=== PATIENT | male | born 1940 | race Caucasian/White ===

== ENCOUNTER 2016-10-06 12:04 | Emergency (ER) | payer MEDICARE, BC ==
[~2016-10-06 12:04] MED LIST: ACTOS PO; ALLOPURINOL300 MG PO; ASPIRIN E.C. 8181 MG PO; ASTELIN137 MCG/Ac NS; ATORVASTATIN CA20 MG PO; AVANDIA8 MG PO; CYCLOBENZAPRINE10 MG PO; FAMOTIDINE20 MG PO; FLEXERIL5 MG PO; FUROSEMIDE20 MG PO; GLUCOPHAGE1000 MG PO; LASIX40 MG PO; LEVOTHYROXIN0.075 M1 PO; LISINOPRIL20 MG PO; LOW DOSE ASPIRI81 MG PO; NEXIUM PO; NITROQUICK0.4 MG SL; ONDANSETRON HYDR4 M1 PO; ULTRAM50 MG PO; VYTORIN 10 MG-41 TAB PO; ZESTRIL5 M1 PO; ZYLOPRIM 300MG300 MG PO
[2016-10-06] MEDS ORDERED: ZOFRAN ODT8 M1 PO (13:52)
== END 2016-10-06 14:01 | disposition home or self-care (01) ==
LOC: ED 12:04
DX: R42 Dizziness and giddiness (principal); R11.0 Nausea; Z85.89 Personal history of malignant neoplasm of other organs and systems; I25.10 Atherosclerotic heart disease of native coronary artery without angina pectoris; I11.9 Hypertensive heart disease without heart failure; E11.9 Type 2 diabetes mellitus without complications; Z79.82 Long term (current) use of aspirin

== ENCOUNTER → 2017-06-24 | Outpatient (CLI) | payer MEDICARE, BC ==
[2016-10-06 14:00] VITALS: BP 157/75
[~2017-06-24] MED LIST changes: +ZOFRAN ODT8 M1 PO
[2017-06-24 11:04] LABS: ALBUMIN 3.8 g/dL (3.5-5.0); BUN/CREATININE RATIO 16.5 (6.0-26.0); CALCIUM 9.7 mg/dL (8.4-10.2); POTASSIUM 3.9 mmol/L (3.6-5.0); TOTAL BILIRUBIN 0.9 mg/dL (0.2-1.3); TOTAL PROTEIN 7.1 g/dL (6.3-8.2)
[2017-06-24 11:10] LABS: EOS # 0.1 (0.04-0.40); EOS % 1.9 % (0.0-4.0); HEMATOCRIT 41.6 % (42.0-52.0); HEMOGLOBIN 13.8 g/dL (13.5-18.0); LYMPH# 1.5 (1.50-4.00); MEAN CELL VOLUME 93 fl (78-100); MEAN CORPUSCULAR HEMOGLOBIN 31 pg (27-31); MEAN CORPUSCULAR HGB CONC 33 g/dL (33-37); MEAN PLATELET VOLUME 9.4 fl (7.4-10.4); MONO # 0.5 (0.20-0.80); NEU # 5.2 (1.40-6.50); PLATELET COUNT 254 K/mm3 (130-400); RED BLOOD COUNT 4.48 M/mm3 (4.20-5.60); RED CELL DISTRIBUTION WIDTH 13.3 % (11.5-14.5); WHITE BLOOD COUNT 7.4 K/mm3 (4.8-10.8)
== END ==
LOC: LAB 10:16
PROVIDERS: Physician Assistant Medical
DX: R10.31 Right lower quadrant pain (principal)

== ENCOUNTER → 2017-07-06 | Outpatient (CLI) | payer MEDICARE, BC ==
[2016-10-06 14:00] VITALS: BP 157/75
== END ==
LOC: RAD 11:40
DX: R10.31 Right lower quadrant pain (principal); K57.30 Diverticulosis of large intestine without perforation or abscess without bleeding; Z90.79 Acquired absence of other genital organ(s)

== ENCOUNTER 2018-03-25 12:01 | Emergency (ER) | payer MEDICARE, BC ==
[~2018-03-25] VITALS: Ht 177.8 cm; Wt 149.5 kg
[2018-03-25] MEDS ORDERED: JANUVIA 100MG100 MG (12:07)
[2018-03-25] MEDS ORDERED: NEURONTIN300 MG/CAP (12:07)
[2018-03-25 12:30] LABS: EOS # 0.3 (0.04-0.40); EOS % 3.1 % (0.0-4.0); HEMATOCRIT 41.1 % (42.0-52.0); HEMOGLOBIN 13.8 g/dL (13.5-18.0); LYMPH# 1.3 (1.50-4.00); MEAN CELL VOLUME 93 fl (78-100); MEAN CORPUSCULAR HEMOGLOBIN 31 pg (27-31); MEAN CORPUSCULAR HGB CONC 34 g/dL (33-37); MEAN PLATELET VOLUME 8.9 fl (7.4-10.4); MONO # 0.4 (0.20-0.80); NEU # 6.5 (1.40-6.50); PLATELET COUNT 280 K/mm3 (130-400); RED BLOOD COUNT 4.42 M/mm3 (4.20-5.60); RED CELL DISTRIBUTION WIDTH 13.6 % (11.5-14.5); WHITE BLOOD COUNT 8.5 K/mm3 (4.8-10.8)
[2018-03-25 12:41] LABS: CALCIUM 9.4 mg/dL (8.4-10.2); POTASSIUM 4.2 mmol/L (3.6-5.0); TOTAL BILIRUBIN 0.8 mg/dL (0.2-1.3); TOTAL PROTEIN 7.3 g/dL (6.3-8.2)
[2018-03-25 13:29] LABS: ERYTHROCYTE SEDIMENTATION RATE 40 mm/hr (0-20)
[2018-03-25] MEDS ORDERED: TRAMADOL 50 MG TAB PO (14:26)
[2018-03-25 14:31] VITALS: BP 158/79
== END 2018-03-25 14:27 | disposition home or self-care (01) ==
LOC: ED 12:01
PROVIDERS: Family Medicine
DX: M54.41 Lumbago with sciatica, right side (principal); E11.22 Type 2 diabetes mellitus with diabetic chronic kidney disease; N18.9 Chronic kidney disease, unspecified; M47.816 Spondylosis without myelopathy or radiculopathy, lumbar region; M10.9 Gout, unspecified; Z79.82 Long term (current) use of aspirin; Z79.899 Other long term (current) drug therapy; Z79.84 Long term (current) use of oral hypoglycemic drugs
CPT/HCPCS: J1885

== ENCOUNTER 2018-04-18 18:15 | Emergency (ER) | payer MEDICARE, BC ==
[~2018-04-18] VITALS: Wt 148.6 kg
[~2018-04-18 18:15] MED LIST changes: +ACTOS 45MG45 MG/TAB PO; -ACTOS PO; +JANUVIA 100MG100 MG; +NEURONTIN300 MG/CAP; +TRAMADOL 50 MG TAB PO
[2018-04-18 18:57] LABS: HEMATOCRIT 44.9 % (42.0-52.0); HEMOGLOBIN 14.6 g/dL (13.5-18.0); MEAN CELL VOLUME 94 fl (78-100); MEAN CORPUSCULAR HEMOGLOBIN 30 pg (27-31); MEAN CORPUSCULAR HGB CONC 33 g/dL (33-37); MEAN PLATELET VOLUME 9.2 fl (7.4-10.4); PLATELET COUNT 282 K/mm3 (130-400); RED CELL DISTRIBUTION WIDTH 13.9 % (11.5-14.5); WHITE BLOOD COUNT 10.2 K/mm3 (4.8-10.8)
[2018-04-18 19:08] LABS: ALBUMIN 4.2 g/dL (3.5-5.0); CALCIUM 9.4 mg/dL (8.4-10.2); POTASSIUM 4.3 mmol/L (3.6-5.0); TOTAL BILIRUBIN 1.9 mg/dL (0.2-1.3); TOTAL PROTEIN 7.9 g/dL (6.3-8.2)
[2018-04-18 19:18] LABS: LYMPHOCYTE 11 % (20-51); MONOCYTE 3 % (3-10); NEUTROPHILS 87 % (42-75)
[2018-04-18 19:34] LABS: URINE APPEARANCE CLEAR; URINE COLOR YELLOW
[2018-04-18 19:35] LABS: URINE BILIRUBIN NEGATIVE (NEGATIVE); URINE BLOOD TRACE (NEGATIVE); URINE GLUCOSE NEGATIVE (NEGATIVE); URINE KETONE NEGATIVE (NEGATIVE); URINE LEUKOCYTE ESTERASE NEGATIVE (NEGATIVE); URINE NITRATE NEGATIVE (NEGATIVE); URINE PROTEIN(semi-quant) TRACE mg/dL (NEGATIVE); URINE UROBILINOGEN NORMAL (NORMAL); URINE WBC 0-1 /hpf (0-3)
[2018-04-18 19:47] LABS: LIPASE 216 U/L (23-300)
[2018-04-18 22:09] LABS: HEMATOCRIT 40.3 % (42.0-52.0); HEMOGLOBIN 13.2 g/dL (13.5-18.0); MEAN CELL VOLUME 94 fl (78-100); MEAN CORPUSCULAR HEMOGLOBIN 31 pg (27-31); MEAN CORPUSCULAR HGB CONC 33 g/dL (33-37); MEAN PLATELET VOLUME 8.9 fl (7.4-10.4); PLATELET COUNT 232 K/mm3 (130-400); RED CELL DISTRIBUTION WIDTH 13.8 % (11.5-14.5); WHITE BLOOD COUNT 10.1 K/mm3 (4.8-10.8)
[2018-04-18 22:22] LABS: ALBUMIN 3.7 g/dL (3.5-5.0); CALCIUM 8.9 mg/dL (8.4-10.2); POTASSIUM 4.1 mmol/L (3.6-5.0); TOTAL BILIRUBIN 1.8 mg/dL (0.2-1.3); TOTAL PROTEIN 6.6 g/dL (6.3-8.2)
[2018-04-18 22:29] LABS: BAND 1 % (0-10); LYMPHOCYTE 2 % (20-51); MONOCYTE 5 % (3-10); NEUTROPHILS 92 % (42-75)
[2018-04-18 23:13] VITALS: BP 129/56
[2018-04-19 00:51] LABS: PROTHROMBIN TIME 10.4 SECONDS (9.0-12.0)
[2018-04-19] MEDS ORDERED: NEURONTIN300 M1 PO (10:23)
[2018-04-19] MEDS ORDERED: ASPIRIN E.C. 8181 MG PO (10:24)
[2018-04-19] MEDS ORDERED: ATORVASTATIN CA40 MG PO (11:05)
[2018-04-19] MEDS ORDERED: ESSENTIAL DAIL1 EACH PO (11:06)
[2018-04-19] MEDS ORDERED: PROAIR HFA0.09 MG/AC IH (11:07)
[2018-04-19] MEDS ORDERED: DESYREL50 MG PO (11:07)
[2018-04-19] MEDS ORDERED: CYCLOBENZAPRINE10 M1 PO (11:08)
[2018-04-19] MEDS ORDERED: FLONASE ALLERG9.9 ML NS (11:08)
== END 2018-04-18 23:13 | disposition home or self-care (01) ==
LOC: ED 18:15
PROVIDERS: Nurse Practitioner Family
DX: J90 Pleural effusion, not elsewhere classified (principal); R50.9 Fever, unspecified; E11.8 Type 2 diabetes mellitus with unspecified complications; K57.90 Diverticulosis of intestine, part unspecified, without perforation or abscess without bleeding; M51.36 Other intervertebral disc degeneration, lumbar region
CPT/HCPCS: J7030

== ENCOUNTER 2018-04-19 09:57 | Emergency (ER) | payer MEDICARE, BC ==
[~2018-04-19] VITALS: Ht 177.8 cm; Wt 148.6 kg
[~2018-04-19 09:57] MED LIST changes: -ATORVASTATIN CA40 MG PO; -CYCLOBENZAPRINE10 M1 PO; -DESYREL50 MG PO; -ESSENTIAL DAIL1 EACH PO; -FLONASE ALLERG9.9 ML NS; -NEURONTIN300 M1 PO; -PROAIR HFA0.09 MG/AC IH
[2018-04-19] MEDS ORDERED: NEURONTIN300 M1 PO (10:23)
[2018-04-19] MEDS ORDERED: ASPIRIN E.C. 8181 MG PO (10:24)
[2018-04-19] MEDS ORDERED: ATORVASTATIN CA40 MG PO (11:05)
[2018-04-19] MEDS ORDERED: ESSENTIAL DAIL1 EACH PO (11:06)
[2018-04-19] MEDS ORDERED: PROAIR HFA0.09 MG/AC IH (11:07)
[2018-04-19] MEDS ORDERED: DESYREL50 MG PO (11:07)
[2018-04-19] MEDS ORDERED: CYCLOBENZAPRINE10 M1 PO (11:08)
[2018-04-19] MEDS ORDERED: FLONASE ALLERG9.9 ML NS (11:08)
[2018-04-19 12:30] VITALS: BP 108/62
[2018-04-20 00:12] LABS: HEPATITIS C ANTIBODY Negative (Negative)
[2018-04-23 11:45] LABS: LYME DISEASE PCR BLOOD AMS
== END 2018-04-19 12:30 | disposition short-term general hospital (02) ==
LOC: ED 09:57
PROVIDERS: Nurse Practitioner Primary Care
DX: R74.0 Nonspecific elevation of levels of transaminase and lactic acid dehydrogenase [LDH] (principal); D72.829 Elevated white blood cell count, unspecified; N17.9 Acute kidney failure, unspecified; E11.8 Type 2 diabetes mellitus with unspecified complications; Z79.84 Long term (current) use of oral hypoglycemic drugs; I10 Essential (primary) hypertension
CPT/HCPCS: J7030; Q9967

== ENCOUNTER → 2018-04-19 | Outpatient (CLI) | payer MEDICARE, BC ==
[2018-04-18 23:13] VITALS: BP 129/56
[~2018-04-19] MED LIST changes: +ATORVASTATIN CA40 MG PO; +CYCLOBENZAPRINE10 M1 PO; +DESYREL50 MG PO; +ESSENTIAL DAIL1 EACH PO; +FLONASE ALLERG9.9 ML NS; +NEURONTIN300 M1 PO; +PROAIR HFA0.09 MG/AC IH
[2018-04-19 08:47] LABS: HEMATOCRIT 40.3 % (42.0-52.0); MEAN CELL VOLUME 94 fl (78-100); MEAN CORPUSCULAR HEMOGLOBIN 30 pg (27-31); MEAN CORPUSCULAR HGB CONC 32 g/dL (33-37); MEAN PLATELET VOLUME 9.2 fl (7.4-10.4); PLATELET COUNT 278 K/mm3 (130-400); RED BLOOD COUNT 4.28 M/mm3 (4.20-5.60); RED CELL DISTRIBUTION WIDTH 13.9 % (11.5-14.5); WHITE BLOOD COUNT 14.4 K/mm3 (4.8-10.8)
[2018-04-19 08:53] LABS: ALBUMIN 3.7 g/dL (3.5-5.0); CALCIUM 8.7 mg/dL (8.4-10.2); POTASSIUM 4.1 mmol/L (3.6-5.0); TOTAL BILIRUBIN 2.6 mg/dL (0.2-1.3); TOTAL PROTEIN 6.9 g/dL (6.3-8.2)
[2018-04-19 10:29] LABS: LYMPHOCYTE 8 % (20-51); MONOCYTE 4 % (3-10); NEUTROPHILS 88 % (42-75)
== END ==
LOC: RAD 08:26
PROVIDERS: Nurse Practitioner Family
DX: R94.5 Abnormal results of liver function studies (principal)

== ENCOUNTER 2018-09-03 11:23 | Emergency (ER) | payer MEDICARE, BC ==
[~2018-09-03] VITALS: Ht 177.8 cm; Wt 150.0 kg
[~2018-09-03 11:23] MED LIST changes: +ATORVASTATIN CA40 MG PO; +CYCLOBENZAPRINE10 M1 PO; +DESYREL50 MG PO; +ESSENTIAL DAIL1 EACH PO; +FLONASE ALLERG9.9 ML NS; +NEURONTIN300 M1 PO; +PROAIR HFA0.09 MG/AC IH
[2018-09-03] MEDS ORDERED: SYNTHROID0.075 MG PO (11:40)
[2018-09-03] MEDS ORDERED: OCUVITE ADULT1 EACH PO (11:41)
[2018-09-03 12:09] LABS: EOS # 0.2 (0.04-0.40); EOS % 2.7 % (0.0-4.0); HEMATOCRIT 40.5 % (42.0-52.0); HEMOGLOBIN 13.3 g/dL (13.5-18.0); LYMPH# 1.5 (1.50-4.00); MEAN CELL VOLUME 94 fl (78-100); MEAN CORPUSCULAR HEMOGLOBIN 31 pg (27-31); MEAN CORPUSCULAR HGB CONC 33 g/dL (33-37); MEAN PLATELET VOLUME 9.4 fl (7.4-10.4); MONO # 0.5 (0.20-0.80); NEU # 5.3 (1.40-6.50); PLATELET COUNT 252 K/mm3 (130-400); RED BLOOD COUNT 4.31 M/mm3 (4.20-5.60); RED CELL DISTRIBUTION WIDTH 14.2 % (11.5-14.5); WHITE BLOOD COUNT 7.5 K/mm3 (4.8-10.8)
[2018-09-03 12:20] LABS: CALCIUM 9.1 mg/dL (8.4-10.2); POTASSIUM 3.8 mmol/L (3.6-5.0); TOTAL BILIRUBIN 0.5 mg/dL (0.2-1.3); TOTAL PROTEIN 7.2 g/dL (6.3-8.2)
[2018-09-03 13:29] VITALS: BP 166/88
== END 2018-09-03 13:26 | disposition home or self-care (01) ==
LOC: ED 11:23
PROVIDERS: Family Medicine
DX: R07.9 Chest pain, unspecified (principal); E11.9 Type 2 diabetes mellitus without complications; I51.9 Heart disease, unspecified; N17.9 Acute kidney failure, unspecified; M10.9 Gout, unspecified; Z90.79 Acquired absence of other genital organ(s); Z87.891 Personal history of nicotine dependence

== ENCOUNTER 2019-01-02 07:34 | Emergency (ER) | payer MEDICARE, BC ==
[~2019-01-02] VITALS: Ht 175.3 cm; Wt 145.5 kg
[~2019-01-02 07:34] MED LIST changes: +OCUVITE ADULT1 EACH PO; +SYNTHROID0.075 MG PO
[2019-01-02 08:12] LABS: EOS # 0.3 (0.04-0.40); EOS % 3.8 % (0.0-4.0); HEMOGLOBIN 12.8 g/dL (13.5-18.0); LYMPH# 1.8 (1.50-4.00); MEAN CELL VOLUME 94 fl (78-100); MEAN CORPUSCULAR HEMOGLOBIN 30 pg (27-31); MEAN CORPUSCULAR HGB CONC 32 g/dL (33-37); MEAN PLATELET VOLUME 8.9 fl (7.4-10.4); MONO # 0.6 (0.20-0.80); PLATELET COUNT 276 K/mm3 (130-400); RED BLOOD COUNT 4.26 M/mm3 (4.20-5.60); RED CELL DISTRIBUTION WIDTH 13.9 % (11.5-14.5); WHITE BLOOD COUNT 8.8 K/mm3 (4.8-10.8)
[2019-01-02 08:17] LABS: ALBUMIN 3.4 g/dL (3.4-4.8); POTASSIUM 3.9 mmol/L (3.5-5.1); SODIUM 139 mmol/L (136-145)
[2019-01-02 08:20] LABS: GLUCOSE 136 mg/dL (75-110); TOTAL PROTEIN 6.6 g/dL (6.2-8.1)
[2019-01-02 08:21] LABS: CARBON DIOXIDE 25 mmol/L (23-31)
[2019-01-02 08:22] LABS: TOTAL BILIRUBIN 0.5 mg/dL (0.2-1.2)
[2019-01-02 08:25] LABS: AST-SGOT 13 U/L (5-34)
[2019-01-02 08:26] LABS: ALT/SGPT 14 U/L (0-55)
[2019-01-02 08:35] LABS: TROPONIN-I < 0.03 ng/mL (<0.030)
[2019-01-02 09:42] VITALS: BP 165/87
== END 2019-01-02 09:42 | disposition home or self-care (01) ==
LOC: ED 07:34
PROVIDERS: Nurse Practitioner Primary Care
DX: K21.9 Gastro-esophageal reflux disease without esophagitis (principal); I11.0 Hypertensive heart disease with heart failure; I50.9 Heart failure, unspecified; I25.2 Old myocardial infarction; E78.5 Hyperlipidemia, unspecified; G47.33 Obstructive sleep apnea (adult) (pediatric); C61 Malignant neoplasm of prostate; Z98.890 Other specified postprocedural states; Z79.82 Long term (current) use of aspirin

== ENCOUNTER → 2020-10-15 | Day surgery (SDC) | payer MEDICARE, BC | END | disposition home or self-care (01) | LOC: MSO 07:44 | DX: H25.13 Age-related nuclear cataract, bilateral (principal); I10 Essential (primary) hypertension; I11.0 Hypertensive heart disease with heart failure; I50.9 Heart failure, unspecified; E11.9 Type 2 diabetes mellitus without complications; J44.9 Chronic obstructive pulmonary disease, unspecified; D49.2 Neoplasm of unspecified behavior of bone, soft tissue, and skin; I25.10 Atherosclerotic heart disease of native coronary artery without angina pectoris; E66.9 Obesity, unspecified; G89.29 Other chronic pain; Z87.891 Personal history of nicotine dependence; Z79.84 Long term (current) use of oral hypoglycemic drugs; Z79.82 Long term (current) use of aspirin; Z79.899 Other long term (current) drug therapy | CPT/HCPCS: 00142; J0171; J2250; J2370; V2632 ==

== ENCOUNTER → 2020-11-12 | Day surgery (SDC) | payer MEDICARE, BC | LOC: MSO 07:42 | DX: E11.36 Type 2 diabetes mellitus with diabetic cataract (principal); H26.9 Unspecified cataract; I10 Essential (primary) hypertension; I25.2 Old myocardial infarction; I25.10 Atherosclerotic heart disease of native coronary artery without angina pectoris; I11.0 Hypertensive heart disease with heart failure; I50.9 Heart failure, unspecified; M54.9 Dorsalgia, unspecified; G47.33 Obstructive sleep apnea (adult) (pediatric); J44.9 Chronic obstructive pulmonary disease, unspecified; E07.9 Disorder of thyroid, unspecified; G89.29 Other chronic pain; Z79.899 Other long term (current) drug therapy; Z79.890 Hormone replacement therapy; Z79.82 Long term (current) use of aspirin; Z88.8 Allergy status to other drugs, medicaments and biological substances; Z85.828 Personal history of other malignant neoplasm of skin; Z87.891 Personal history of nicotine dependence; Z79.84 Long term (current) use of oral hypoglycemic drugs | CPT/HCPCS: 00142; J0171; J2250; J2370; V2632 ==

== ENCOUNTER → 2020-12-23 | Outpatient (CLI) | payer MEDICARE, BC | LOC: VAS 09:50 → RAD 10:00 → VAS 10:00 → RAD 11:00 | DX: R60.0 Localized edema (principal) ==

== ENCOUNTER → 2021-09-30 | Outpatient (CLI) | payer MEDICARE, BC | LOC: LAB 12:21 → VAS 12:21 → RAD 12:21 | DX: M79.662 Pain in left lower leg (principal) ==